=== PATIENT | male | born 1970 | race Caucasian/White ===

== ENCOUNTER 2016-09-14 10:27 | Emergency (ER) | payer OTHER ==
[2016-09-14] MEDS ORDERED: IPRATROPIUM/ALBUTEROL 3 ML NEB INH STA (12:15)
[2016-09-14] MEDS ORDERED: DEXAMETHASONE 10 MG/ML VIAL PO STA (12:15)
[2016-09-14] MEDS ORDERED: CHERRY SYRUP 10 ML UDC PO ONE (12:19)
[2016-09-14] MEDS ORDERED: DEXAMETHASONE 10 MG/ML VIAL ONE (12:19)
[2016-09-14] MEDS ORDERED: IPRATROPIUM/ALBUTEROL 3 ML NEB INH ONE (12:24)
== END 2016-09-14 13:02 | disposition home or self-care (01) ==
DX: R07.89 Other chest pain (principal); J45.21 Mild intermittent asthma with (acute) exacerbation; H66.003 Acute suppurative otitis media without spontaneous rupture of ear drum, bilateral; R09.81 Nasal congestion
CPT/HCPCS: 36415; 71020; 80053; 83690; 84484; 85025; 93005; 93010; 94150; 94640; 99284; A9270; J7620

== ENCOUNTER 2017-03-04 14:55 | Outpatient (CLI) | payer OTHER ==
--- NOTE | 2017-03-04 16:26 | MRI Report ---
EXAM: MRI CERVICAL SPINE WITHOUT CONTRAST EXAM DATE: 03/04/2017 03:00 PM. CLINICAL HISTORY: 46-year-old with history of spinal fusion with worsening neck pain radiating to the upper extremities COMPARISONS: MR cervical spine 12/18/2013. TECHNIQUE: Multiplanar, multisequence T1-weighted and fluid-sensitive sequences of the cervical spine without contrast. Other: None. FINDINGS: Neurologic Structures: The visualized posterior fossa structures are unremarkable. No signal abnormal ity in the visualized spinal cord. Alignment: Straightening of the normal cervical lordosis. No definite spondylolisthesis. No definite sclerotic curvature. Bone Marrow: Post surgical changes of C6-C7 ACDF and C6-C7 diskectomy with interbody fusion graft margo cement. There appears to be fusion of the C6-C7 vertebral bodies. There is gwec-ae-hejofzzf endplate degenerative change, shows no formation, mild loss of disk, disk d esiccation that appears progressed from 12/18/2013 and may represent transfer lesion. Remaining cervica l levels demonstrate minimal endplate degenerative change, minimal loss of disk, and disk desiccation . There is sjxc-im-uoiscubr endplate edema seen at C5-C6 and is likely degenerative in nature. No other areas of abnormal bone marrow edema. No acute fracture. No marrow replacing lesion. Interspace Levels/Facets: C1-C2: Unremarkable. C2-C3: Small central disk osteophyte complex with slight effacement of the ventral thecal sac. No def inite neural from narrowing. C3-C4: Small central disk osteophyte complex with slight thecal sac effacement. Bilateral uncovertebr al osteophyte and arthritic facet disease and mild left and moderate right neuroforaminal narrowing. Findings appear progressed. C4-C5: Small central disk osteophyte complex producing mild spinal canal stenosis. Bilateral osteophy tic and arthritic facet disease with mild bilateral neuroforaminal narrowing. Findings appear progres sed. C5-C6: Small to moderate posterior disk osteophyte complex producing arvy-nb-vwsfqnij spinal canal st enosis. Bilateral uncovertebral osteophytic and arthritic facet disease with mild to moderate right a nd mild left neural foraminal narrowing. Findings appear progressed. C6-C7: Small posterior disk osteophyte complexes at effacement of the ventral thecal sac. Bilateral u ncovertebral osteophyte and arthritic facet disease with moderate left and gpdo-nj-uttbvnjo right markos ral foraminal narrowing. C7-T1: Unremarkable. Musculature: Normal. No edema or fatty atrophy. Other: The paravertebral and prevertebral soft tissues are normal. IMPRESSION: 1. Post surgical changes of C6-C7 ACDF and C6-C7 diskectomy with interbody fusion graft placement. 2. Progressive degenerative changes seen at C5-C6 that may represent a transfer lesion. 3. Multilevel degenerative changes that appear progressed from MR 12/18/2013. C3-C4: No significant spinal canal stenosis. Mild left and moderate right neuroforaminal narrowing. C4-C5: Mild spinal canal stenosis. Mild bilateral neuroforaminal narrowing. C5-C6: Cpfe-qx-jshmdnkc spinal canal stenosis. Mild to moderate right and mild left neural foraminal narrowing. C6-C7: No significant spinal canal stenosis. Moderate left and htzj-iw-aetafcmv right neural foramina l narrowing. [facility] Referring Provider Line: [phone] SITE ID: [id number]
== END 2017-03-04 14:56 | disposition home or self-care (01) ==
LOC: DI 14:55
PROVIDERS: ATTEND Nurse Practitioner Family
DX: M54.2 Cervicalgia (principal); M47.892 Other spondylosis, cervical region; Z98.1 Arthrodesis status
CPT/HCPCS: 72141

== ENCOUNTER 2022-02-05 08:00 | Outpatient (CLI) | payer OTHER ==
[2022-02-05 17:58] LABS: BASOPHILS # (AUTO) 0.1 10^3/uL (0.0-0.1); BASOPHILS % (AUTO) 0.8 %; EOSINOPHILS # (AUTO) 0.2 10^3/uL (0.0-0.7); HCT - HEMATOCRIT 40.9 % (42.0-52.0); LYMPHOCYTES # (AUTO) 2.1 10^3/uL (1.5-3.5); LYMPHOCYTES % (AUTO) 23.9 %; MEAN CORPUSCULAR HGB CONC 34.2 g/dL (32.0-36.0); MEAN CORPUSCULAR VOLUME 84.9 fL (80.0-94.0); MEAN PLATELET VOLUME 9.6 fL (7.4-11.4); MONOCYTES # (AUTO) 0.6 10^3/uL (0.0-1.0); MONOCYTES % (AUTO) 6.5 %; NEUTROPHILS # (AUTO) 5.7 10^3/uL (1.5-6.6); NEUTROPHILS % (AUTO) 66.4 %; PLT - PLATELET COUNT 238 10^3/uL (130-450); RED BLOOD COUNT 4.82 10^6/uL (4.70-6.10); RED CELL DISTRIBUTION WIDTH 12.3 % (12.0-15.0); WHITE BLOOD COUNT 8.6 x10^3/uL (4.8-10.8)
[2022-02-05 18:13] LABS: ALBUMIN/GLOBULIN RATIO 1.4 (1.0-2.2); BILIRUBIN,TOTAL 0.8 mg/dL (0.2-1.0); CALCIUM 9.1 mg/dL (8.5-10.3); CREATININE 0.9 mg/dL (0.6-1.2); POTASSIUM 3.7 mmol/L (3.5-5.0); TOTAL PROTEIN 6.9 g/dL (6.7-8.2)
== END 2022-02-05 23:59 | disposition home or self-care (01) ==
LOC: LAB.N 08:00
PROVIDERS: ATTEND Registered Nurse
DX: R10.11 Right upper quadrant pain (principal)
CPT/HCPCS: 36415; 80053; 83690; 85025

== ENCOUNTER 2023-05-04 13:00 | Outpatient (CLI) | payer OTHER ==
--- NOTE | 2023-05-04 18:59 | XRAY Report ---
PROCEDURE: Chest 2 View X-Ray INDICATIONS: COUGH TECHNIQUE: 2 views of the chest were acquired. COMPARISON: Chest radiograph on arch 12/29/2016. FINDINGS: Surgical changes and devices: None. Lungs and pleura: No pleural effusions or pneumothorax. Bilateral perihilar bronchovascular thickeni ng. Middle lobe subsegmental atelectasis. No focal pulmonary consolidation. Mediastinum: Mediastinal contours appear normal. Heart size is normal. Bones and chest wall: No suspicious bony lesions. No acute fracture. Partially visualized cervical s pine hardware. Overlying soft tissues appear unremarkable. IMPRESSION: 1. Bilateral perihilar bronchovascular thickening which may represent reactive airways disease and/or viral pneumonia. 2. No focal pulmonary consolidation. Reviewed by: Latasha Celis MD on 05/04/2023 6:57 PM PDT Approved by: Latasha Celis MD on 05/04/2023 6:57 PM PDT Station ID: [id number]
== END 2023-05-04 13:01 | disposition home or self-care (01) ==
LOC: DI 13:00
PROVIDERS: ATTEND Registered Nurse
DX: R05.1 Acute cough (principal); R91.8 Other nonspecific abnormal finding of lung field